=== PATIENT | male | born 1995 | race Caucasian/White ===

== ENCOUNTER 2016-08-06 18:42 | Emergency (ER) | payer OTHER ==
[~2016-08-06] VITALS: Ht 198.1 cm; Wt 111.1 kg
[~2016-08-06 18:42] MED LIST: IBUPROFEN 600600 M1 PO; VICODIN 5-5001 EACH PO
[2016-08-06] MEDS ORDERED: ALLEGRA ALLERG180 MG (19:40)
[2016-08-06] MEDS ORDERED: CYCLOBENZAPRINE5 MG PO (20:39)
[2016-08-06] MEDS ORDERED: MOBIC15 MG PO (20:39)
[2016-08-06 20:55] VITALS: BP 139/85
== END 2016-08-06 20:55 | disposition home or self-care (01) ==
LOC: ER 18:42
DX: S16.1XXA Strain of muscle, fascia and tendon at neck level, initial encounter (principal); S09.90XA Unspecified injury of head, initial encounter; V47.5XXA Car driver injured in collision with fixed or stationary object in traffic accident, initial encounter; Y93.89 Activity, other specified; Y92.89 Other specified places as the place of occurrence of the external cause; Y99.8 Other external cause status

== ENCOUNTER → 2020-12-15 | Outpatient (CLI) | payer OTHER ==
[~2020-12-15] MED LIST changes: +ALLEGRA ALLERG180 MG; +CYCLOBENZAPRINE5 MG PO; +MOBIC15 MG PO
== END ==
LOC: SJCVCIMAG 12-13 09:55
PROVIDERS: ATTEND Internal Medicine Cardiovascular Disease
DX: I10 Essential (primary) hypertension (principal); E78.5 Hyperlipidemia, unspecified; Z86.16 Personal history of COVID-19; Z82.49 Family history of ischemic heart disease and other diseases of the circulatory system; Z79.899 Other long term (current) drug therapy; Z72.89 Other problems related to lifestyle